=== PATIENT | female | born 1965 | race Caucasian/White ===

== ENCOUNTER 2017-01-31 06:54 | Emergency (ER) | payer OTHER ==
[~2017-01-31] VITALS: Ht 167.6 cm; Wt 106.6 kg
[~2017-01-31 06:54] MED LIST: CIPRO 250MG250 MG PO; LEVOTHYROXINE150 MCG PO; LIORESAL 10MG T10 MG PO; MOTRIN 600 MG600 MG PO; TAMOXIFEN CITRA20 MG PO; TRAMADOL50 MG PO; VENLAFAXINE HCL75 M2 PO
--- NOTE | 2017-01-31 07:34 | ED GENERAL ADULT ---
History of Present Illness General Chief Complaint: General Adult Stated Complaint: DIZZY,+NAUSEA SINCE THIS MORNING Source: patient Exam Limitations: no limitations Vital Signs & Intake/Output Vital Signs & Intake/Output Vital Signs Date Time Temp Pulse Resp B/P Pulse O2 O2 Flow FiO2 Ox Delivery Rate 01/31 1113 78 16 108/62 100 Room Air 01/31 0923 75 16 101/57 100 Room Air 01/31 0705 97.4 89 18 132/88 99 Room Air Allergies Coded Allergies: oxycodone (From PERCOCET) (SEVERE SHAKING 01/31/17) Uncoded Allergies: NEEDS TO USE PAPER TAPE (UNKNOWN 09/26/11) Reconcile Medications Levothyroxine Sodium 150 MCG TABLET 1 TAB PO DAILY AC THYROID (Reported) Tamoxifen Citrate 20 MG TABLET 1 TAB PO DAILY CA (Reported) Venlafaxine HCl (Venlafaxine HCl ER) 75 MG TAB.ER.24 1 TAB PO DAILY MENTAL HEALTH (Reported) Triage Note: PT TO ED C/O DIZZINESS, HEAD SPINNING. AND DRY HEAVING SINCE WAKING UP TO GO TO THE BATHROOM AT 0200. ATE LEFT OVER CHIPPED BEEF FOR DINNER LAST NIGHT, WAS PREPARED 3 DAYS PRIOR. DENIES SOB, DENIES CHEST PAIN. DIZZINESS WORSE WITH MOVEMENT. FEELS SINUS CONGESTION Triage Nurses Notes Reviewed? yes Onset: Abrupt Duration: hour(s): Timing: recent history HPI: 01/31/17 51-year-old female who presents to the emergency department with severe dizziness. The patient states she was in her usual state of health until early this morning when she developed severe vertigo. The onset of the symptoms were abrupt, the duration has been over the past 12 hours, the severity is significant; as her symptoms required her to come to the emergency department for care. She denies headache or fever. She does have nausea She also says that she has some sinus congestion. She's said she's had vertigo in the past. Past History Travel History Traveled to [place] past 21 day No Medical History Any Pertinent Medical History? see below for history Neurological: anxiety EENT: vertigo Endocrine: hypothyroidism Cancer(s): breast cancer Surgical History Surgical History: non-contributory Psychosocial History What is your primary language [place] Tobacco Use: Quit >30 days ago ETOH Use: denies use Illicit Drug Use: denies illicit drug use Family History Hx Contributory? No Review of Systems Review of Systems Constitutional: Denies: fever. EENTM: Reports: nasal congestion. Respiratory: Denies: short of breath. Cardiovascular: Reports: chest pain. GI: Denies: abdominal pain. Genitourinary: Reports: no symptoms. Musculoskeletal: Reports: no symptoms. Skin: Reports: no symptoms. Neurological/Psychological: Denies: headache. Hematologic/Endocrine: Reports: no symptoms. Immunologic/Allergic: Reports: no symptoms. Physical Exam Physical Exam General Appearance: well developed/nourished, alert, awake, anxious, mild distress Head: atraumatic, normal appearance Eyes: Bilateral: normal appearance (NO NYSTAGMUS), PERRL, EOMI. Ears, Nose, Throat: normal pharynx, normal ENT inspection Neck: normal inspection, supple, full range of motion Respiratory: normal breath sounds Cardiovascular: regular rate/rhythm Peripheral Pulses: 4+ radial (R), 4+ radial (L) Gastrointestinal: non-tender Back: normal range of motion Extremities: normal inspection, normal range of motion, no edema Neurologic/Psych: no motor/sensory deficits, awake, alert, oriented x 3 Skin: intact, normal color, warm/dry Core Measures ACS in differential dx? No CVA/TIA Diagnosis: No Severe Sepsis Present: No Septic Shock Present: No Progress Differential Diagnoses I considered the following diagnoses in my evaluation of the patient: [Vertigo, CVA, TIA, adverse drug reaction, labyrinthitis, vestibular neuronitis, Mnire's disease] Plan of Care: Orders Procedure Date/time Status TROPONIN LEVEL 01/31 0744 Complete COMPREHENSIVE METABOLIC PANEL 01/31 0744 Complete CBC WITHOUT DIFFERENTIAL 01/31 0744 Complete EKG 01/31 0744 Active Laboratory Tests 01/31/17 0804: Anion Gap 4 L, Estimated GFR > 60, BUN/Creatinine Ratio 24.3, Glucose 96, Calcium 9.5, Total Bilirubin 0.6, AST 25, ALT 37, Alkaline Phosphatase 60, Troponin I < 0.01, Total Protein 6.9, Albumin 3.7, Globulin 3.2, Albumin/ Globulin Ratio 1.2, CBC w Diff NO MAN DIFF REQ, RBC 4.49, MCV 90.0, MCH 30.9, RDW 12.3, MPV 8.5, Gran % 62.3, Lymphocytes % 28.7, Monocytes % 6.4, Eosinophils % 2.2, Basophils % 0.4, Absolute Granulocytes 2.8, Absolute Lymphocytes 1.3, Absolute Monocytes 0.3, Absolute Eosinophils 0.1, Absolute Basophils 0, PUBS MCHC 34.4 Initial ED EKG: NSR Departure Departure Disposition: HOME OR SELF CARE Condition: Stable Clinical Impression Primary Impression: Vertigo Referrals: ROBERTO MIRANDA,MADELIN Gutierrez (PCP/Family) Departure Forms: Customer Survey General Discharge Information Comments 01/31/17 The patient's labs EKG are all unremarkable. Her symptoms improved with Antivert. She will be treated with lIPO-FLAVIOD PLUS DIRECTED FOLLOW UP WITH ENT Critical Care Note Critical Care Note Critical Care Time: non-applicable Comments: Patient symptoms resolved completely with Phenergan and Antivert. She will follow-up with ENT.lipo-flavionoid plus as directed
[2017-01-31] MEDS ORDERED: TAMOXIFEN CITRA20 M1 PO (08:07)
[2017-01-31 08:20] LABS: ABSOLUTE BASOPHIL COUNT 0 /CUMM (0.0-0.2); ABSOLUTE EOSINOPHIL COUNT 0.1 /CUMM (0.0-0.7); ABSOLUTE GRANULOCYTE CT 2.8 /CUMM (1.4-6.5); ABSOLUTE LYMPH COUNT 1.3 /CUMM (1.2-3.4); ABSOLUTE MONOCYTE COUNT 0.3 /CUMM (0.10-0.60); BASOPHIL % 0.4 % (0.0-2.0); EOSINOPHIL % 2.2 % (0-5); GRANULOCYTE % 62.3 % (42.2-75.2); HEMATOCRIT 40.4 % (37-47); MEAN CORPUSCULAR HGB 30.9 PG (27.0-31.0); MEAN CORPUSCULAR HGB CONC 34.4 G/DL (33.0-37.0); MEAN PLATELET VOLUME 8.5 FL (7.4-10.4); PLATELET COUNT 196 /CUMM (130-400); RBC DISTRIBUTION WIDTH 12.3 % (11.5-14.5); RED BLOOD CELL CT 4.49 /CUMM (4.20-5.40); WHITE BLOOD CELL COUNT 4.5 /CUMM (4.8-10.8)
[2017-01-31 11:13] VITALS: BP 108/62
== END 2017-01-31 11:14 ==
LOC: ERH 06:54
PROVIDERS: Emergency Medicine
DX: R42 Dizziness and giddiness (principal); R11.0 Nausea
CPT/HCPCS: 93005; 93010; 96361; 96374; J2765